=== PATIENT | female | born 1995 | race Caucasian/White ===

== ENCOUNTER 2024-07-04 17:50 | Emergency (ER) | payer OTHER, SELFPAY ==
[2024-07-04 17:56] VITALS: BP 114/77
[2024-07-04 19:00] VITALS: BP 103/76
[2024-07-04] MEDS: DECADRON 10 MG IV (19:08)
[2024-07-04] MEDS: PEPCID 20 MG IV (19:08)
[2024-07-04 20:00] VITALS: BP 103/70
[2024-07-04 21:00] VITALS: BP 105/74
--- NOTE | 2024-07-04 21:54 | ED.GENMED ---
History of Present Illness
General
Chief Complaint: Allergic Reaction
Source: patient and family
Exam Limitations: none
Time Seen by Provider: 07/04/24 19:03
Nursing documentation reviewed up to this point in time: agreed with
History of Present Illness
History of Present Illness:
28-year-old female presenting to the emergency department today after being stung by multiple bees is working as a laundry room attendant prior to arrival. Took 50 of Benadryl prior to arrival. Swelling of the lips and itchiness around the face and upper
extremities. No trouble swallowing or breathing. No nausea vomiting or lightheadedness.
Past History
Past History
ED Past Medical History: Psychiatric
ED Past Surgical History: None
Social History
Drug: Marijuana, Cocaine and Narcotics
Personal: Single
Living: with family
Employment: Student
Review of Systems
Review of Systems
Allergies reviewed?: Yes
All Other Systems: ROS reviewed and negative except as documented in HPI and ROS
Phy Exam
Physical Exam
Physical Exam:
GENERAL: Alert , in no apparent distress
EYE: pupils equal and reactive
NECK: Supple, no significant adenopathy.
ENT: o/p clr, mmm.
CARDIAC: Regular rate and rhythm .
LUNGS: Clear breath sounds bilaterally, no acute respiratory distress, no wheezes/rales/rhonchi
ABDOMEN: Soft, without focal tenderness, no r/g, no cvat
NEUROLOGICAL: Alert and oriented, no focal neuro deficits
SKIN: Warm and dry, skin intact.
MUSCULOSKELETAL: No edema, well perfused.
PSYCH: Normal and appropriate interaction.
Course
Orders/Labs/Results
Orders:
Orders
07/04/24 19:03
Dexamethasone Sod Phosphate [Decadron] 10 mg IV NOW STA
Famotidine [Pepcid] 20 mg IV NOW STA
Vital Signs
Initial and Last Documented VS:
Initial Vital Signs
Temp Pulse Resp BP Pulse Ox
97.7 F 60 18 114/77 99
07/04/24 17:56 07/04/24 17:56 07/04/24 17:56 07/04/24 17:56 07/04/24 17:56
Last Documented Vital Signs
Temp Pulse Resp BP Pulse Ox
97.7 F 67 18 105/74 96
07/04/24 17:56 07/04/24 21:45 07/04/24 21:45 07/04/24 21:00 07/04/24 21:45
MDM/Problems Addressed
MDM/Problems Addressed:
28-year-old female presenting to the emergency department today after being stung by multiple bees. Took Benadryl prior to arrival. On arrival here significant hives to the neck and upper extremities but no evidence of wheeze swelling of the mouth
or throat no signs of anaphylaxis. Patient was given dose of steroid as well as H2 emiliano. Patient improvement of symptoms over a few hours in the ER otherwise stable for outpatient management return precautions given. Was given an EpiPen to
have on hand moving forward.
*Critical Care Note
Total Time (30-74mins, 75-104mins- exclusive of procedures): Not Applicable
ED Attending Note
-
Portions of this chart may have been created with voice recognition software.� Occasional wrong word or��sound alike� substitutions may have occurred due to the inherent limitations of voice recognition software.
Discharge Plan
Departure
Patient Disposition: Home (Routine Discharge)
Date of Disposition: 07/04/24
Time of Disposition: 21:55
Patient with high blood pressure during this ER visit?: No
Condition: Good
Covid-19: Not Applicable
Discharge Problem:
Allergic reaction to bee sting
Instructions: Hives (DC)
Prescriptions:
New
cetirizine [Zyrtec] 10 mg tablet
10 mg PO BID 4 Days Qty: 8 0RF
prednisone 20 mg tablet
40 mg PO DAILY 3 Days Qty: 6 0RF
famotidine 20 mg tablet
20 mg PO BID 4 Days Qty: 8 0RF
epinephrine [Auvi-Q] 0.3 mg/0.3 mL auto-injector
0.3 mg IM Q5-15M PRN (Reason: anaphylaxis) Qty: 2 0RF
Referrals:
Helder Painting MD [Family Provider] -
Leela Sharma MD [Active] - Follow up in 5-7 days
Activity Restrictions/Additional Instructions:
You came to the emergency department today after multiple bee stings. Here you had a reassuring assessment and improving symptoms after receiving treatment. Please take the prescribed medications and follow-up with the sewer tapper. Return for any
worsening, new or concerning symptoms.
Interventions
Interventions:
*Risk Screen - Suicide Last Done: 07/04/24 17:56
*General Assessment Last Done: 07/04/24 17:56
*Neglect/Abuse Screening Last Done: 07/04/24 17:56
*ED- Fall Risk Assessment Last Done: 07/04/24 19:09
*ED COVID-19 Vaccine History Last Done: 07/04/24 19:09
*Nursing Disposition Last Done: 07/04/24 22:13
ED- Cardiac Assessment Last Done: 07/04/24 19:09
ED- Pulmonary Assessment Last Done: 07/04/24 19:09
ED-Skin Assessment Last Done: 07/04/24 19:09
Discharge Date and Time
Discharge Date/Time: 07/04/24 22:13
Print Language: [id number]
== END 2024-07-04 22:13 | disposition home or self-care (01) ==
LOC: EMR 17:50
PROVIDERS: EMERGENCY PHYSICIAN Emergency Medicine; FAMILY PHYSICIAN Internal Medicine
DX: T63.441A Toxic effect of venom of bees, accidental (unintentional), initial encounter (principal); L50.9 Urticaria, unspecified
CPT/HCPCS: 96374; 96375; 99284